=== PATIENT | female | born 1940 | race American Indian/Alaskan Native ===

== ENCOUNTER 2016-10-31 08:44 | Day surgery (SDC) | payer MEDICARE ==
[2016-10-26 09:09] VITALS: BMI 30.1
[2016-10-31] MEDS ORDERED: Propofol 10 mg/ml Inj (20 ML) ONE (10:34)
[2016-10-31] MEDS ORDERED: Sodium Chloride 0.9% 1,000 ML IV SCH (11:45)
[2016-10-31 12:19] VITALS: RESP 16; O2SAT 99
[2016-10-31 13:03] VITALS: BP 139/70; PULSE 52; TEMP 98
== END 2016-10-31 13:27 | disposition home or self-care (01) ==
LOC: ENDO 08:44
PROVIDERS: ATTEND Internal Medicine Gastroenterology
DX: K92.2 Gastrointestinal hemorrhage, unspecified (principal); K57.30 Diverticulosis of large intestine without perforation or abscess without bleeding; K56.2 Volvulus; K31.7 Polyp of stomach and duodenum; K21.9 Gastro-esophageal reflux disease without esophagitis; K64.8 Other hemorrhoids; I10 Essential (primary) hypertension
CPT/HCPCS: 43251; 45378; 88305; 88342; J2704; J7040 ×2

== ENCOUNTER 2017-01-20 09:10 | Emergency (ER) | payer MEDICARE ==
[2017-01-20 09:24] VITALS: BMI 32.0
[2017-01-20 09:33] VITALS: RESP 18; TEMP 98.3
[2017-01-20 10:40] LABS: BASO # 0.02 K/mm3 (0.0-2.0); BASO % 0.3 % (0.0-3.0); EOS # 0.1 (0.0-0.7); EOS % 1.3 % (1.5-5.0); GRAN # 2.75 (1.4-6.5); GRAN % 39.3 % (50.0-68.0); LYMPH # 3.9 (1.2-3.4); LYMPH % 55.4 % (22.0-35.0); MEAN CELL VOLUME 90.7 fl (80.0-105.0); MEAN CORPUSCULAR HEMOGLOBIN 29.9 pg (25.0-35.0); MEAN CORPUSCULAR HGB CONC 32.9 g/dl (31.0-37.0); MEAN PLATELET VOLUME 8.7 fl (7.0-11.0); MONO # 0.3 (0.1-0.6); MONO % 3.7 % (1.0-6.0); RED CELL DISTRIBUTION WIDTH 15.3 % (11.5-14.5)
--- NOTE | 2017-01-20 10:51 | ED PDOC ---
Arrival/HPI - General Chief Complaint: Breast Problem Time Seen by Provider: 01/20/17 09:36 Historian: Patient - History of Present Illness Narrative History of Present Illness (Text): 01/20/17 10:47 76 y/o female presents to the ED complaining of right sided breast pain for 2 days. As per pt. pain is "cramp-like", nonradiating and intermittent. Pain lasts for a few seconds and resolves spontaneously. Pt states she has had a dry cough for a few days prior to onset of pain. Denies taking any medication for pain. Denies recent physical exertion/lifting, fever, shortness of breath, palpitations or dizziness. States she had a mammogram a few weeks ago which was normal. Symptom Course: Intermittent Past Medical History - Provider Review Nursing Documentation Reviewed: Yes - Infectious Disease Hx of Infectious Diseases: None - Cardiac Hx Cardiac Disorders: Yes Hx Hypertension: Yes Hx Hypotension: Yes - Pulmonary Hx Respiratory Disorders: Yes Hx Pneumonia: Yes - Neurological Hx Neurological Disorder: No - HEENT Hx HEENT Disorder: No - Renal Hx Renal Disorder: No - Endocrine/Metabolic Hx Endocrine Disorders: No - Hematological/Oncological Hx Leukemia: Yes - Integumentary Hx Dermatological Disorder: No - Musculoskeletal/Rheumatological Hx Musculoskeletal Disorders: Yes - Gastrointestinal Hx Gastrointestinal Disorders: Yes Hx Gastroesophageal Reflux: Yes - Genitourinary/Gynecological Hx Genitourinary Disorders: No - Psychiatric Hx Psychophysiologic Disorder: No Hx Substance Use: No - Surgical History Hx Tonsillectomy: Yes Other/Comment: hx left rotator cuff, screws in right knee - Anesthesia Hx Anesthesia: Yes Hx Anesthesia Reactions: No Hx Malignant Hyperthermia: No - Suicidal Assessment Feels Threatened In Home Enviroment: No Family/Social History - Physician Review Nursing Documentation Reviewed: Yes Family/Social History: Unknown Family HX Smoking Status: Former Smoker Hx Alcohol Use: No Hx Substance Use: No Allergies/Home Meds Allergies/Adverse Reactions: Allergies celecoxib [From Celebrex] Adverse Reaction (Verified 01/20/17 09:36) NAUSEA Home Medications: Home Meds Medication Instructions Recorded Confirmed Aspirin [Adult Low Dose Aspirin EC] 81 mg PO QAM 10/26/16 01/20/17 Dasatinib [Sprycel] 50 mg PO DIN 10/26/16 01/20/17 Multivit-Min/FA/Lycopen/Lutein 1 each PO DAILY 10/26/16 01/20/17 [Centrum Silver Tablet] Ubidecarenone [Coq-10] 100 mg PO DAILY 10/26/16 01/20/17 Olmesartan/Hydrochlorothiazide 1 tab PO DAILY 01/20/17 01/20/17 [Olmesartan-Hctz 20-12.5 mg Tab] Omeprazole [Omeprazole] 20 mg PO DAILY 01/20/17 01/20/17 Review of Systems - Review of Systems Constitutional: absent: Fevers ENT: absent: Sore Throat, Rhinorrhea Respiratory: Cough. absent: SOB Cardiovascular: Other (chest wall pain). absent: Palpitations, THOMPSON, Syncope Gastrointestinal: absent: Abdominal Pain, Nausea, Vomiting Musculoskeletal: Normal Skin: Normal Neurological: Normal Psychiatric: Normal Physical Exam Vital Signs Reviewed: Yes Vital Signs Temp Pulse Resp BP Pulse Ox 01/20/17 11:39 90 18 140/90 98 01/20/17 09:11 98.3 F 89 18 150/71 99 Temperature: Afebrile Blood Pressure: Hypertensive Pulse: Regular Respiratory Rate: Normal Appearance: Positive for: Well-Appearing, Non-Toxic, Comfortable Pain Distress: Mild Mental Status: Positive for: Alert and Oriented X 3 - Systems Exam Head: Present: Atraumatic, Normocephalic Respiratory/Chest: Present: Clear to Auscultation. No: Respiratory Distress, Accessory Muscle Use Cardiovascular: Present: Regular Rate and Rhythm Abdomen: No: Tenderness Breast/Axillary: Present: Tender to Palpation (right breast) Back: Present: Normal Inspection Upper Extremity: Present: Normal Inspection Lower Extremity: Present: Normal Inspection Neurological: Present: GCS=15, Speech Normal Skin: Present: Warm, Dry Psychiatric: Present: Alert, Oriented x 3 Medical Decision Making ED Course and Treatment: 01/20/17 14:17 EKG, chest XR, CBC,CMP troponin ordered. Pt is asymptomatic while in the ED. Shows no signs of distress. Troponin negative. EKG shows 76 bpm NSR,no st elevations or t wave changes, normal axis Chest wall pain/breast pain likely muscular in etiology. Chest XR result IMPRESSION: The interstitial markings are increased and coarsened with a few scattered peribronchial cuffs. . Findings may represent sequela of the reactive/ inflammatory airway disease or viral illness. These changes appear somewhat more confluent in the lower lung field possibly due to atelectasis as well. In addition, there is a vague nodular density in the left mid to lower lung field although not seen on lateral projection. This focus is of uncertain etiology and only seen on the lateral projection of could represent some rounded localized atelectasis and/or developing infiltrate. . . Followup CT scan of the chest recommended further evaluation to exclude the possibility of a parenchymal mass. Note that these findings discussed with emergency room physician Ida at approximately 2 p.m. with written down and read back verification. Discussed chest XR result with pt and was advised to follow up with her PCP for a follow up CT scan. pt expressed understanding and agrees with the plan. Reassessment Condition: Improved - Lab Interpretations Lab Results: 01/20/17 10:10 01/20/17 10:10 Lab Results 01/20/17 10:10: Sodium 142, Potassium 3.8, Chloride 102, Carbon Dioxide 30, Anion Gap 14, BUN 12, Creatinine 0.7, Est GFR ( Amer) > 60, Est GFR (Non- Af Amer) > 60, Random Glucose 111 H, Calcium 9.2, Total Bilirubin 0.5, AST 44 H , ALT 40, Alkaline Phosphatase 83, Troponin I < 0.01, Total Protein 7.7, Albumin 4.2, Globulin 3.5, Albumin/Globulin Ratio 1.2 01/20/17 10:10: WBC 7.0 D, RBC 3.75, Hgb 11.2 L, Hct 34.0 L, MCV 90.7, MCH 29.9 , MCHC 32.9, RDW 15.3 H, Plt Count 278, MPV 8.7, Gran % 39.3 L, Lymph % (Auto) 55.4 H, Perkins % (Auto) 3.7, Eos % (Auto) 1.3 L, Baso % (Auto) 0.3, Gran # 2.75, Lymph # 3.9 H, Perkins # 0.3, Eos # 0.1, Baso # 0.02 - RAD Interpretation Radiology Orders: 01/20/17 10:01 CHEST TWO VIEWS (PA/LAT) [RAD] Stat Disposition/Present on Arrival - Present on Arrival Any Indicators Present on Arrival: No History of DVT/PE: No History of Uncontrolled Diabetes: No Urinary Catheter: No History of Decub. Ulcer: No History Surgical Site Infection Following: None - Disposition Have Diagnosis and Disposition been Completed?: Yes Diagnosis: Chest wall pain Disposition: HOME/ ROUTINE Disposition Time: 11:29 Patient Plan: Discharge Condition: STABLE Discharge Instructions (ExitCare): Chest Pain (ED) Print Language: SALVADOREAN Additional Instructions: Take Tylenol as needed for pain. Follow up with your PCP in 2-3 days. Return to the ED if symptom worsens or if new concerning symptoms such as shortness of breath , dizziness or palpitations. Referrals: Low Marc MD [Primary Care Provider] - Follow up with primary Forms: [employer] ([employer])
[2017-01-20 10:56] LABS: ALB/GLOB RATIO 1.2 (1.1-1.8); ALKALINE PHOSPHATASE 83 U/L (38-126); ALT/SGPT 40 U/L (7-56); AST/SGOT 44 U/L (14-36); BILIRUBIN,TOTAL 0.5 mg/dL (0.2-1.3); BLOOD UREA NITROGEN 12 mg/dL (7-21); CALCIUM 9.2 mg/dL (8.4-10.5); CARBON DIOXIDE 30 mmol/L (21-33); CHLORIDE 102 mmol/L (98-107); GFR AFRICAN-AMERICAN > 60; GLUCOSE,RANDOM 111 mg/dL (70-110); POTASSIUM 3.8 mmol/L (3.6-5.0); SODIUM 142 mmol/L (132-148); TOTAL PROTEIN 7.7 g/dL (5.8-8.3)
[2017-01-20 11:09] LABS: TROPONIN I < 0.01 ng/mL
[2017-01-20 11:39] VITALS: BP 140/90; PULSE 90; O2SAT 98
--- NOTE | 2017-01-20 14:09 | RAD ---
HISTORY: chest pain COMPARISON: Comparison chest 04/22/2015 TECHNIQUE: Chest PA and lateral FINDINGS: LUNGS: The interstitial markings are increased and coarsened with a few scattered peribronchial cuffs. . Findings may represent sequela of the reactive/inflammatory airway disease or viral illness. These changes appear somewhat more confluent in the lower lung field possibly due to atelectasis as well. In addition, there is a vague nodular density in the left mid to lower lung field although not seen on lateral projection. This focus is of uncertain etiology and only seen on the lateral projection of could represent some rounded localized atelectasis and/or developing infiltrate. . . Followup nonemergent CT scan of the chest recommended further evaluation to exclude the possibility of a parenchymal mass. Note that this report was placed in PA review folder for followup PLEURA: No significant pleural effusion identified. No pneumothorax apparent. CARDIOVASCULAR: Heart size upper limits of normal/ borderline enlarged OSSEOUS STRUCTURES: No significant abnormalities. VISUALIZED UPPER ABDOMEN: Normal. OTHER FINDINGS: None. IMPRESSION: The interstitial markings are increased and coarsened with a few scattered peribronchial cuffs. . Findings may represent sequela of the reactive/inflammatory airway disease or viral illness. These changes appear somewhat more confluent in the lower lung field possibly due to atelectasis as well. In addition, there is a vague nodular density in the left mid to lower lung field although not seen on lateral projection. This focus is of uncertain etiology and only seen on the lateral projection of could represent some rounded localized atelectasis and/or developing infiltrate. . . Followup CT scan of the chest recommended further evaluation to exclude the possibility of a parenchymal mass. Note that these findings discussed with emergency room physician Ida at approximately 2 p.m. with written down and read back verification.
--- NOTE | 2017-01-20 14:31 | CARD ---
APPROVED REPORT EKG Measurement Heart [id number] IL [id number] <Conclusion> Normal sinus rhythm Normal ECG
== END 2017-01-20 11:40 | disposition home or self-care (01) ==
LOC: ED 09:10
DX: R07.89 Other chest pain (principal); I10 Essential (primary) hypertension

== ENCOUNTER 2018-03-20 10:16 | Emergency (ER) | payer MEDICARE, OTHER ==
[2018-03-20 10:44] VITALS: BMI 29.2
[2018-03-20 11:03] VITALS: RESP 18; TEMP 97.8; O2SAT 98
[2018-03-20] MEDS ORDERED: Sodium Chloride 0.9% 1,000 ML IV STA (11:20)
--- NOTE | 2018-03-20 11:43 | ED PDOC ---
Arrival/HPI - General Chief Complaint: GI Problem Time Seen by Provider: 03/20/18 10:32 Historian: Patient - History of Present Illness Narrative History of Present Illness (Text): 03/20/18 11:20 77 year old female, with past medical history of leukemia, liver cyst and vertigo, presents to the ED complaining of dizziness/lightheadedness since yesterday. Patient reports feeling at her baseline waking up yesterday, however, at around 5:30 am, she developed mild abdominal pain. Patient reports having 5 bowel movements yesterday and worsening symptoms throughout the day. Patient informs persistent symptoms this morning associated with lose stool and dizziness, prompting her to present to the ED for medical evaluation. Patient denies any other associated somatic complaints. Patient denies any fevers, chills, headache, chest pain, shortness of breath, dyspnea on exertion, cough, nausea, vomiting, back pain, neck pain, or any other complaints. Patient denies any recent travel, sick contact or any recent antibiotics use. PMD: Dr. Marc Time/Duration: 24 hours Symptom Onset: Gradual Symptom Course: Unchanged Quality: Aching Activities at Onset: Light Context: Home Past Medical History - Provider Review Nursing Documentation Reviewed: Yes - Infectious Disease Hx of Infectious Diseases: None - Cardiac Hx Cardiac Disorders: Yes Hx Hypertension: Yes Hx Hypotension: Yes - Pulmonary Hx Respiratory Disorders: Yes Hx Pneumonia: Yes - Neurological Hx Neurological Disorder: No - HEENT Hx HEENT Disorder: No - Renal Hx Renal Disorder: No - Endocrine/Metabolic Hx Endocrine Disorders: No - Hematological/Oncological Hx Leukemia: Yes - Integumentary Hx Dermatological Disorder: No - Musculoskeletal/Rheumatological Hx Musculoskeletal Disorders: No - Gastrointestinal Hx Gastrointestinal Disorders: Yes Hx Gastroesophageal Reflux: Yes - Genitourinary/Gynecological Hx Genitourinary Disorders: No - Psychiatric Hx Psychophysiologic Disorder: No Hx Substance Use: No - Surgical History Hx Tonsillectomy: Yes Other/Comment: hx left rotator cuff, screws in right knee - Anesthesia Hx Anesthesia: Yes Hx Anesthesia Reactions: No Hx Malignant Hyperthermia: No - Suicidal Assessment Feels Threatened In Home Enviroment: No Family/Social History - Physician Review Nursing Documentation Reviewed: Yes Family/Social History: Unknown Family HX Smoking Status: Former Smoker Hx Alcohol Use: No Hx Substance Use: No Allergies/Home Meds Allergies/Adverse Reactions: Allergies celecoxib [From Celebrex] Adverse Reaction (Verified 10/30/17 16:55) NAUSEA wrong Home Medications: Home Meds Medication Instructions Recorded Confirmed Aspirin [Adult Low Dose Aspirin EC] 81 mg PO QAM 10/26/16 03/20/18 Dasatinib [Sprycel] 50 mg PO DIN 10/26/16 03/20/18 Ubidecarenone [Coq-10] 100 mg PO DAILY 10/26/16 03/20/18 Olmesartan/Hydrochlorothiazide 1 tab PO DAILY 01/20/17 03/20/18 [Olmesartan-Hctz 20-12.5 mg Tab] Omeprazole 20 mg PO DAILY 01/20/17 03/20/18 Cholecalciferol [Vitamin D 1000 IU] 1 tab PO QWK 03/20/18 03/20/18 Review of Systems - Physician Review All systems were reviewed & negative as marked: Yes - Review of Systems Constitutional: absent: Fevers Respiratory: absent: SOB, Cough Cardiovascular: absent: Chest Pain Gastrointestinal: Abdominal Pain, Diarrhea. absent: Nausea, Vomiting, Appetite Changes Genitourinary Female: absent: Dysuria, Urine Output Changes Musculoskeletal: absent: Back Pain, Neck Pain Skin: absent: Rash Neurological: Dizziness. absent: Headache Physical Exam Vital Signs Reviewed: Yes Vital Signs Temp Pulse Resp BP Pulse Ox 03/20/18 11:00 97.8 F 76 18 141/77 98 Temperature: Afebrile Blood Pressure: Normal Pulse: Regular Respiratory Rate: Normal Appearance: Positive for: Well-Appearing, Non-Toxic, Comfortable Pain Distress: None Mental Status: Positive for: Alert and Oriented X 3 - Systems Exam Head: Present: Atraumatic, Normocephalic Pupils: Present: PERRL Extroacular Muscles: Present: EOMI Conjunctiva: Present: Normal Mouth: Present: Moist Mucous Membranes Neck: Present: Normal Range of Motion. No: Paraspinal Tenderness, JVD, Bruit Respiratory/Chest: Present: Clear to Auscultation, Good Air Exchange. No: Respiratory Distress, Accessory Muscle Use Cardiovascular: Present: Regular Rate and Rhythm, Normal S1, S2. No: Murmurs Abdomen: No: Tenderness, Distention, Peritoneal Signs Back: Present: Normal Inspection Upper Extremity: Present: Normal Inspection. No: Cyanosis, Edema Lower Extremity: Present: Normal Inspection. No: Edema Neurological: Present: GCS=15, CN II-XII Intact, Speech Normal, Motor Func Grossly Intact, Normal Sensory Function, Normal Cerebellar Funct, Norm Deep Tendon Reflexes, Gait Normal, Memory Normal, Normal 2Pt Descrimination Skin: Present: Warm, Dry, Normal Color. No: Rashes Psychiatric: Present: Alert, Oriented x 3, Normal Insight, Normal Concentration Medical Decision Making ED Course and Treatment: 03/20/18 11:20 Impression: 77 year old female presents to the Emergency department complaining of dizziness, abdominal pain and lose stool. Plan: -- Labs -- IV Fluids -- Reassess and disposition Prior Visits: Notes and results from previous visits were reviewed. Progress Notes: 03/20/18 15:44 Upon reassessment, patient informs dizziness at rest. Patient states the room feels like spinning when turning the head to the right. Will consider vertigo and give patient meclizine PO. 03/20/18 17:01 PROCEDURE: CT HEAD WITHOUT CONTRAST. IMPRESSION: No acute intracranial abnormality. If there is a persistent focal neurologic deficit and an ongoing clinical concern for acute infarction, an MRI of the brain without intravenous contrast would be a more sensitive modality for evaluation of hyperacute/acute ischemic infarction. Chronic right sphenoid sinusitis. Patient no longer feels dizziness. Dizziness improved with hydration and Meclizine. No concern for CVA at this time. Patient also reassures that the dizziness was when she moved her head consistent as an added symptom of BPPV. Advised patient to keep well hydrated and take medication as needed. She will follow up with Dr. Marc in 1-2days and advised to return to the ED if symptoms worsen or any other concern. - Medication Orders Current Medication Orders: Sodium Chloride (Sodium Chloride 0.9%) 1,000 mls @ 1,000 mls/hr IV .Q1H STA Stop: 03/20/18 12:19 - Scribe Statement The provider has reviewed the documentation as recorded by the Scribmitch Davies. All medical record entries made by the Scribe were at my direction and personally dictated by me. I have reviewed the chart and agree that the record accurately reflects my personal performance of the history, physical exam, medical decision making, and the department course for this patient. I have also personally directed, reviewed, and agree with the discharge instructions and disposition. Disposition/Present on Arrival - Present on Arrival Any Indicators Present on Arrival: No History of DVT/PE: No History of Uncontrolled Diabetes: No Urinary Catheter: No History of Decub. Ulcer: No History Surgical Site Infection Following: None - Disposition Have Diagnosis and Disposition been Completed?: Yes Diagnosis: Dehydration, Vertigo Disposition: HOME/ ROUTINE Disposition Time: 17:04 Patient Plan: Discharge Patient Problems: Current Active Problems Problem Status Onset Dehydration Acute Vertigo Acute Condition: IMPROVED Discharge Instructions (ExitCare): Vertigo (a Type of Dizziness) Additional Instructions: JAYME COWART, thank you for letting us take care of you today. Your provider was Erik Dinh DO and you were treated for Vertigo, Dehydration, Gastroenteritis. The emergency medical care you received today was directed at your acute symptoms. If you were prescribed any medication, please fill it and take as directed. It may take several days for your symptoms to resolve. Return to the Emergency Department if your symptoms worsen, do not improve, or if you have any other problems. Please contact your doctor or call one of the physicians/clinics you have been referred to that are listed on the Patient Visit Information form that is included in your discharge packet. Bring any paperwork you were given at discharge with you along with any medications you are taking to your follow up visit. Our treatment cannot replace ongoing medical care by a primary care provider outside of the emergency department. Thank you for allowing the [facility] team to be part of your care today. If you had an X-Ray or CT scan: A Radiologist will review the ED reading if any change in treatment is needed we will contact you. If you had a blood, urine, or wound culture: It will take several days for the results, if any change in treatment is needed we will contact you. If you had an STI test: It will take 48 hours for the results. Please call after 1 week if you have not heard back. Prescriptions: Meclizine [Meclizine*] 25 mg PO Q6 PRN #30 tab PRN Reason: Dizziness Referrals: Low Marc MD [Primary Care Provider] - Follow up with primary Forms: [employer] (Congolese)
[2018-03-20 11:59] LABS: BASO # 0.01 K/mm3 (0.0-2.0); BASO % 0.1 % (0.0-3.0); EOS % 0.2 % (1.5-5.0); GRAN # 2.59 (1.4-6.5); GRAN % 29.5 % (50.0-68.0); HEMOGLOBIN 12.3 g/dL (12.0-16.0); LYMPH % 67.7 % (22.0-35.0); MEAN CELL VOLUME 91.6 fl (80.0-105.0); MEAN CORPUSCULAR HEMOGLOBIN 30.5 pg (25.0-35.0); MEAN CORPUSCULAR HGB CONC 33.3 g/dl (31.0-37.0); MEAN PLATELET VOLUME 8.7 fl (7.0-11.0); MONO # 0.2 (0.1-0.6); MONO % 2.5 % (1.0-6.0); RBC 4.03 10^6/uL (3.5-6.1); WHITE BLOOD COUNT 8.8 10^3/uL (4.5-11.0)
[2018-03-20 12:06] LABS: ALB/GLOB RATIO 1.1 (1.1-1.8); ALBUMIN 4.1 g/dL (3.0-4.8); ALT/SGPT 35 U/L (7-56); AST/SGOT 49 U/L (14-36); BLOOD UREA NITROGEN 14 mg/dL (7-21); CALCIUM 8.7 mg/dL (8.4-10.5); GFR NON-AFRICAN AMERICAN > 60
[2018-03-20] MEDS ORDERED: Sodium Chloride 0.9% 500 ML IV STA (13:24)
--- NOTE | 2018-03-20 16:32 | CT ---
Date of service: 03/20/2018 PROCEDURE: CT HEAD WITHOUT CONTRAST. HISTORY: r/o cva COMPARISON: None available. TECHNIQUE: Axial computed tomography images were obtained through the head/brain without intravenous contrast. Radiation dose: Total exam DLP = 751.09 mGy-cm. This CT exam was performed using one or more of the following dose reduction techniques: Automated exposure control, adjustment of the mA and/or kV according to patient size, and/or use of iterative reconstruction technique. FINDINGS: HEMORRHAGE: No intracranial hemorrhage. BRAIN: Doss-white matter differentiation is preserved. There is no mass, mass effect or abnormal extra-axial fluid collection. There is no territorial infarction. The midline sagittal structures are normal. VENTRICLES: There is mild age-related global parenchymal volume loss and proportionate enlargement of the ventricles and cortical sulci. CALVARIUM: There is no calvarial fracture or extracranial soft tissue swelling. PARANASAL SINUSES: There is complete opacification of the right sphenoid chamber. The remaining included paranasal sinuses are clear. MASTOID AIR CELLS: Predominantly clear. OTHER FINDINGS: None. IMPRESSION: No acute intracranial abnormality. If there is a persistent focal neurologic deficit and an ongoing clinical concern for acute infarction, an MRI of the brain without intravenous contrast would be a more sensitive modality for evaluation of hyperacute/acute ischemic infarction. Chronic right sphenoid sinusitis.
[2018-03-20 16:46] VITALS: BP 131/61; PULSE 67
== END 2018-03-20 17:19 | disposition home or self-care (01) ==
LOC: ED 10:16
DX: E86.0 Dehydration (principal); R42 Dizziness and giddiness; I10 Essential (primary) hypertension; Z85.6 Personal history of leukemia; Z87.891 Personal history of nicotine dependence
CPT/HCPCS: 70450; 80053; 83735; 85025; 96360; 96361; 99285; J7030; J7040

== ENCOUNTER 2018-07-26 07:42 | Emergency (ER) | payer MEDICARE, OTHER ==
[2018-07-26 07:48] VITALS: BMI 29.0
[2018-07-26 07:51] VITALS: RESP 16; TEMP 98.6
--- NOTE | 2018-07-26 08:07 | ED PDOC ---
Arrival/HPI - General Chief Complaint: GI Problem Time Seen by Provider: 07/26/18 07:43 Historian: Patient - History of Present Illness Narrative History of Present Illness (Text): 07/26/18 07:58 A 77 year old female, whose past medical history includes hypertension, leukemia (currently in treatment) and GERD, presents to the ED complaining of abdominal pain for the past 2 days. Patient reports that she ate oneill beans and woke up with sharp abdominal pain that radiates to her chest. Patient notes pain is intermittent, most recent episode started last night. Patient reports associated gas but denies fevers, chills, headache, dizziness, shortness of breath, dyspnea on exertion, cough, nausea, vomiting, diarrhea, back pain, neck pain, urinary/bowel changes, or any other complaints. Time/Duration: 24 hours Symptom Onset: Gradual Symptom Course: Unchanged Activities at Onset: Light Context: Home Past Medical History - Provider Review Nursing Documentation Reviewed: Yes - Infectious Disease Hx of Infectious Diseases: None - Cardiac Hx Cardiac Disorders: Yes Hx Hypertension: Yes Hx Hypotension: Yes - Pulmonary Hx Respiratory Disorders: Yes Hx Pneumonia: Yes - Neurological Hx Neurological Disorder: No - HEENT Hx HEENT Disorder: No - Renal Hx Renal Disorder: No - Endocrine/Metabolic Hx Endocrine Disorders: No - Hematological/Oncological Hx Leukemia: Yes - Integumentary Hx Dermatological Disorder: No - Musculoskeletal/Rheumatological Hx Musculoskeletal Disorders: No - Gastrointestinal Hx Gastrointestinal Disorders: Yes Hx Gastroesophageal Reflux: Yes - Genitourinary/Gynecological Hx Genitourinary Disorders: No - Psychiatric Hx Psychophysiologic Disorder: No Hx Substance Use: No - Surgical History Hx Tonsillectomy: Yes Other/Comment: hx left rotator cuff, screws in right knee - Anesthesia Hx Anesthesia: Yes Hx Anesthesia Reactions: No Hx Malignant Hyperthermia: No - Suicidal Assessment Feels Threatened In Home Enviroment: No Family/Social History - Physician Review Nursing Documentation Reviewed: Yes Family/Social History: Unknown Family HX Smoking Status: Former Smoker Hx Alcohol Use: No Hx Substance Use: No Allergies/Home Meds Allergies/Adverse Reactions: Allergies celecoxib [From Celebrex] Adverse Reaction (Verified 02/05/17 16:55) NAUSEA wrong Home Medications: Home Meds Medication Instructions Recorded Confirmed Aspirin [Adult Low Dose Aspirin EC] 81 mg PO QAM 10/26/16 03/20/18 Dasatinib [Sprycel] 50 mg PO DIN 10/26/16 03/20/18 Ubidecarenone [Coq-10] 100 mg PO DAILY 10/26/16 03/20/18 Olmesartan/Hydrochlorothiazide 1 tab PO DAILY 01/20/17 03/20/18 [Olmesartan-Hctz 20-12.5 mg Tab] Omeprazole 20 mg PO DAILY 01/20/17 03/20/18 Cholecalciferol [Vitamin D 1000 IU] 1 tab PO QWK 03/20/18 03/20/18 Review of Systems - Physician Review All systems were reviewed & negative as marked: Yes - Review of Systems Constitutional: Normal. absent: Fatigue, Fevers Eyes: Normal. absent: Vision Changes ENT: Normal. absent: Hearing Changes, Rhinorrhea Respiratory: Normal. absent: SOB, Cough Cardiovascular: Chest Pain Gastrointestinal: Abdominal Pain. absent: Diarrhea, Nausea, Vomiting Genitourinary Female: Normal. absent: Dysuria, Hematuria Musculoskeletal: Normal. absent: Back Pain, Neck Pain Skin: Normal. absent: Rash Neurological: Normal. absent: Headache, Dizziness Endocrine: Normal. absent: Diaphoresis Hemo/Lymphatic: Normal. absent: Adenopathy Psychiatric: Normal. absent: Anxiety, Depression Physical Exam Vital Signs Reviewed: Yes Vital Signs Temp Pulse Resp BP Pulse Ox 07/26/18 07:48 98.6 F 93 H 16 134/70 97 Temperature: Afebrile Blood Pressure: Normal Pulse: Regular Respiratory Rate: Normal Appearance: Positive for: Well-Appearing, Non-Toxic, Comfortable Pain Distress: None Mental Status: Positive for: Alert and Oriented X 3 - Systems Exam Head: Present: Atraumatic, Normocephalic Pupils: Present: PERRL Extroacular Muscles: Present: EOMI Conjunctiva: Present: Normal Mouth: Present: Moist Mucous Membranes Neck: Present: Normal Range of Motion Respiratory/Chest: Present: Clear to Auscultation, Good Air Exchange. No: Respiratory Distress, Accessory Muscle Use Cardiovascular: Present: Regular Rate and Rhythm, Normal S1, S2. No: Murmurs Abdomen: Present: Tenderness (Epigastric region tenderness), Guarding. No: Rebound Upper Extremity: Present: Normal Inspection. No: Cyanosis, Edema Lower Extremity: Present: Normal Inspection. No: Edema Neurological: Present: GCS=15, CN II-XII Intact, Speech Normal Skin: Present: Warm, Dry, Normal Color. No: Rashes Psychiatric: Present: Alert, Oriented x 3, Normal Insight, Normal Concentration Medical Decision Making ED Course and Treatment: 07/26/18 08:12 Impression: A 77 year old female who presents to the ED complaining of abdominal pain that radiates to her chest. Differential Diagnosis included but are not limited to: GERD vs cardiac. Plan: -- EKG -- Labs -- Chest X-Ray -- Maalox -- elixir -- Lidocaine -- Pepcid -- IV Fluids -- Reassess and disposition Prior Visits: Notes and results from previous visits were reviewed. Progress Notes: EKG: NSR @ 92 bpm. Normal internals. No ST elevations. 07/26/18 09:55 Patient re-evaluated, abdomen non tender, non distended. No pain, patient tolerating PO fluids, reports hunger. Will takes Zantac and Nexium at home so she will continue to take those. She will follow up with PMD in 1-2 days and was advised to return to the ED if symptoms worsen or any other concern. - Scribe Statement The provider has reviewed the documentation as recorded by the Stevenibe Teresa Guajardo Provider Scribe Attestation: All medical record entries made by the Scribe were at my direction and personally dictated by me. I have reviewed the chart and agree that the record accurately reflects my personal performance of the history, physical exam, medical decision making, and the department course for this patient. I have also personally directed, reviewed, and agree with the discharge instructions and disposition. Disposition/Present on Arrival - Present on Arrival Any Indicators Present on Arrival: No History of DVT/PE: No History of Uncontrolled Diabetes: No Urinary Catheter: No History of Decub. Ulcer: No History Surgical Site Infection Following: None - Disposition Have Diagnosis and Disposition been Completed?: Yes Diagnosis: Abdominal pain, GERD (gastroesophageal reflux disease) Disposition: HOME/ ROUTINE Disposition Time: 10:05 Patient Plan: Discharge Condition: IMPROVED Discharge Instructions (ExitCare): Acid Reflux (Gastroesophageal Reflux Disease), Adult (DC), Acute Abdomen (Belly Pain) Additional Instructions: JAYME COWART, thank you for letting us take care of you today. Your provider was Erik Dinh DO and you were treated for Abdominal Pain, Reflux. The emergency medical care you received today was directed at your acute symptoms. If you were prescribed any medication, please fill it and take as directed. It may take several days for your symptoms to resolve. Return to the Emergency Department if your symptoms worsen, do not improve, or if you have any other problems. Please contact your doctor or call one of the physicians/clinics you have been referred to that are listed on the Patient Visit Information form that is included in your discharge packet. Bring any paperwork you were given at discharge with you along with any medications you are taking to your follow up visit. Our treatment cannot replace ongoing medical care by a primary care provider outside of the emergency department. Thank you for allowing the [facility] team to be part of your care today. If you had an X-Ray or CT scan: A Radiologist will review the ED reading if any change in treatment is needed we will contact you. If you had a blood, urine, or wound culture: It will take several days for the results, if any change in treatment is needed we will contact you. If you had an STI test: It will take 48 hours for the results. Please call after 1 week if you have not heard back. Referrals: Low Marc MD [Family Provider] - Follow up with primary Forms: [employer] (Thai)
[2018-07-26] MEDS ORDERED: Atrop/Hyosc/Scopal/PB Elixir (120 ml) PO STA (08:10)
[2018-07-26] MEDS ORDERED: Alum-Mag Hydrox-Simethicone Susp (30 mL) PO STA (08:10)
[2018-07-26] MEDS ORDERED: Famotidine 20mg/50ml 20 MG/50 ML BAG IVPB STA (08:10)
[2018-07-26 08:23] LABS: BASO # 0.02 K/mm3 (0.0-2.0); BASO % 0.3 % (0.0-3.0); EOS # 0.1 (0.0-0.7); EOS % 1.3 % (1.5-5.0); HEMOGLOBIN 12.2 g/dL (12.0-16.0); LYMPH # 3.9 (1.2-3.4); LYMPH % 65.3 % (22.0-35.0); MEAN CELL VOLUME 92.3 fl (80.0-105.0); MEAN CORPUSCULAR HEMOGLOBIN 31.2 pg (25.0-35.0); MEAN CORPUSCULAR HGB CONC 33.8 g/dl (31.0-37.0); MEAN PLATELET VOLUME 8.5 fl (7.0-11.0); MONO # 0.4 (0.1-0.6); MONO % 5.9 % (1.0-6.0); RBC 3.91 10^6/uL (3.5-6.1); RED CELL DISTRIBUTION WIDTH 16.3 % (11.5-14.5)
[2018-07-26 08:28] LABS: ALB/GLOB RATIO 1.1 (1.1-1.8); ALBUMIN 3.9 g/dL (3.0-4.8); ALT/SGPT 20 U/L (7-56); AST/SGOT 43 U/L (14-36); BLOOD UREA NITROGEN 15 mg/dL (7-21); CALCIUM 9.2 mg/dL (8.4-10.5); GFR NON-AFRICAN AMERICAN > 60; LIPASE 53 U/L (23-300)
[2018-07-26 08:39] LABS: TROPONIN I < 0.01 ng/mL
--- NOTE | 2018-07-26 09:20 | RAD ---
Date of service: 07/26/2018 HISTORY: chest pain/abdominalpain COMPARISON: 01/20/2017 TECHNIQUE: 1 view obtained. FINDINGS: LUNGS: Mild chronic interstitial changes are seen in the lower lobes right greater than left. No acute findings PLEURA: No significant pleural effusion identified, no pneumothorax apparent. CARDIOVASCULAR: No aortic atherosclerotic calcification present. Normal cardiac size. No pulmonary vascular congestion. OSSEOUS STRUCTURES: No significant abnormalities. VISUALIZED UPPER ABDOMEN: Normal. OTHER FINDINGS: None. IMPRESSION: No active disease.
[2018-07-26 09:59] VITALS: BP 129/65; PULSE 70; O2SAT 96
--- NOTE | 2018-07-26 23:55 | CARD ---
APPROVED REPORT Date of service: 07/26/2018 EKG Measurement Heart [id number] <Conclusion> Normal sinus rhythm Normal ECG
== END 2018-07-26 10:05 | disposition home or self-care (01) ==
LOC: ED 07:42
DX: K21.9 Gastro-esophageal reflux disease without esophagitis (principal); R10.9 Unspecified abdominal pain; I10 Essential (primary) hypertension; Z87.891 Personal history of nicotine dependence